=== PATIENT | male | born 1995 | race Hispanic/Latino ===

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

== ENCOUNTER 2018-01-19 00:27 | Emergency (ER) | payer OTHER ==
[~2018-01-19] VITALS: Ht 172.7 cm; Wt 112.9 kg
--- NOTE | 2018-01-19 01:52 | ED GI/GU/ABDOMINAL COMPLAINT ---
History of Present Illness General Chief Complaint: General Adult Stated Complaint: PT SEEN HERE YESTERDAY C/C UPPER GI PAIN Source: patient, family, old records Exam Limitations: no limitations Vital Signs & Intake/Output Vital Signs & Intake/Output Vital Signs Date Time Temp Pulse Resp B/P B/P Pulse O2 O2 Flow FiO2 Mean Ox Delivery Rate 01/19 0352 61 18 128/73 99 Room Air 01/19 0048 96.9 52 20 117/68 98 Room Air Allergies Coded Allergies: azithromycin (RASH 08/09/16) Uncoded Allergies: KIDNEY BEANS (Intermediate, ITCHY THROAT AND ASTHMA FLARE UP 03/14/16) PEACHES (Intermediate, ITCHY THROAT AND ASTHMA FLARE UP 03/14/16) PLUMS (Intermediate, ITCHY THROAT AND ASTHMA FLARE UP 03/14/16) Reconcile Medications Albuterol Sulfate (Proair Hfa) 90 MCG HFA.AER.AD 2 PUF INH Q4-6 PRN PRN SOB ( Reported) Beclomethasone Dipropionate (QVAR) 80 MCG AER.W.ADAP 2 PUF INH BID SOB ( Reported) Cyclobenzaprine HCl 10 MG TABLET 1 TAB PO Q8P SPASMS Esomeprazole (Nexium) 40 MG CAPSULE.DR 1 CAP PO DAILY GERD (Reported) Esomeprazole (Nexium) 40 MG CAPSULE.DR 1 CAP PO DAILY GERD Ibuprofen 800 MG TABLET 1 TAB PO TID PRN pain Meloxicam (Mobic) 15 MG TABLET 1 TAB PO DAILY pain Metoclopramide HCl (Reglan) 10 MG TABLET 1 TAB PO 4 TIMES/DAY reflux 30 minutes before meals and bedtime Montelukast Sodium 10 MG TABLET 1 TAB PO DAILY SOB (Reported) Simethicone (Phazyme) 250 MG CAPSULE 1 CAP PO Q4P PRN gas Triage Note: PT HERE WITH C/O CONSTANT PRESSURE TO EPIGASTRIC AREA AND "ALOT OF GAS", "I FEEL LIKE SOMETING IS TRYING TOP COME UP. Triage Nurses Notes Reviewed? yes Onset: Afternoon Duration: hour(s):, constant, continues in ED Timing: recent history Quality/Severity: aching, moderate, severe Location: epigastric Radiation: chest Activities at Onset: none Prior Abdominal Problems: similar symptoms Past Sexual History: Unobtainable at this time No Modifying Factors: none Associated Symptoms: abdominal pain, loss of appetite HPI: 12 hours prior to admission patient complains of recurrent epigastric discomfort described as gas moderate to severe radiating to his chest associated with decreased appetite. He denies fever chills vomiting diarrhea chest pain cough shortness breath headache dysuria rash bleeding. Past History Travel History Traveled to [place] past 21 day No Medical History Any Pertinent Medical History? 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 No Review of Systems Review of Systems Constitutional: Reports: no symptoms. EENTM: Reports: no symptoms. Respiratory: Reports: no symptoms. Cardiovascular: Reports: no symptoms. GI: Reports: see HPI, abdominal pain. Genitourinary: Reports: no symptoms. Musculoskeletal: Reports: no symptoms. Skin: Reports: no symptoms. Neurological/Psychological: Reports: no symptoms. Hematologic/Endocrine: Reports: no symptoms. Immunologic/Allergic: Reports: no symptoms. All Other Systems: Reviewed and Negative Physical Exam Physical Exam General Appearance: well developed/nourished, alert, awake, anxious, moderate distress, obese Head: atraumatic, normal appearance Eyes: Bilateral: normal appearance, PERRL, EOMI, normal inspection. Ears, Nose, Throat, Mouth: hearing grossly normal, moist mucous membrane Neck: normal inspection, supple, full range of motion, normal alignment Respiratory: normal breath sounds, chest non-tender, no respiratory distress, quiet respiration, lungs clear Cardiovascular: regular rate/rhythm, normal peripheral pulses, norml femoral pulses equa Peripheral Pulses: 4+ carotid (R), 4+ carotid (L) Gastrointestinal: normal bowel sounds, soft, non-tender, no organomegaly Male Genitals: normal genitalia Back: normal inspection, normal range of motion Extremities: normal range of motion, no ligament instability Neurologic/Psych: no motor/sensory deficits, awake, alert, oriented x 3, normal gait, normal mood/affect, relocation 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 No Sepsis Present: No Sepsis Focused Exam Completed? No Progress Differential Diagnosis: biliary colic, gastritis, PUD/GERD Plan of Care: Current Medications Sig/José Start time Last Medication Dose Stop Time Status Admin Simethicone 320 MG ONCE ONE 01/19 330 UNVr (Mylicon) 01/19 331 Initial ED EKG: none Departure Departure Time of Disposition: 331 Disposition: HOME OR SELF CARE Condition: Stable Clinical Impression Primary Impression: Gastroesophageal reflux disease Referrals: Thony MARS,Brayden Perez (PCP/Family) Sukh Ojeda MD Departure Forms: Customer Survey General Discharge Information Prescriptions: Current Visit Scripts Metoclopramide HCl (Reglan) 1 TAB PO 4 TIMES/DAY #30 TAB 30 minutes before meals and bedtime Simethicone (Phazyme) 1 CAP PO Q4P PRN gas #50 CAP
[2018-01-19] MEDS ORDERED: REGLAN10 M1 PO (03:34)
[2018-01-19] MEDS ORDERED: PHAZYME250 MG PO (03:34)
[2018-01-19 03:52] VITALS: BP 128/73
== END 2018-01-19 04:21 ==
LOC: ERH 00:27
DX: K21.9 Gastro-esophageal reflux disease without esophagitis (principal)
CPT/HCPCS: 96365; 96366; 96375; J2765